=== PATIENT | female | born 1950 | race Caucasian/White ===

== ENCOUNTER → 2024-08-28 09:53 | Outpatient (CLI) | payer MEDICARE, SELFPAY ==
--- NOTE | 2024-08-28 09:55 | DI.CT.S_ITS ---
PROCEDURE: CT LUNG LOW DOSE SCREENING INDICATIONS: Current everyday smoker TECHNIQUE: Noncontrast 2.0-2.5 mm thick sections acquired from the pulmonary apices to the posterior costophrenic angles. 7 mm thick axial MIP, and 5 mm coronal and sagittal reformats were then acquired. For radiation dose reduction, the following was used: automated exposure control, adjustment of mA and/or kV according to patient size. COMPARISON: None. FINDINGS: Image quality: Diagnostic. Lower Neck: No enlarged lymph nodes. Thyroid: No thyroid nodules which require sonographic follow up, per consensus guidelines. Axillae: No enlarged lymph nodes. Chest Wall: Unremarkable. Bones: Unremarkable. Lungs and Pleura: No pneumothorax or pleural effusions. Moderate to severe upper lobe predominant emphysema No consolidation or suspicious nodules. Heart: Heart size is normal. No pericardial effusion. Thoracic Vessels: The aorta and pulmonary arteries demonstrate normal size. Mediastinum and Bety: No enlarged lymph nodes. Esophagus: No wall thickening. No hiatal hernia. Upper Abdomen: Visualized upper abdomen solid organs and bowel loops appear normal. IMPRESSION: No suspicious pulmonary nodules. LUNG-RADS 1; continued annual screening, if eligible. Clinically Significant Non-pulmonary Findings: None. Approved by: Mary Kay Ward M.D.,Ph.D. on 08/29/2024 at 1:32
== END ==
PROVIDERS: PCP Student in an Organized Health Care Education/Training Program; Referring Provider Student in an Organized Health Care Education/Training Program; Visit Provider Student in an Organized Health Care Education/Training Program
DX: F17.210 Nicotine dependence, cigarettes, uncomplicated (principal); Z12.2 Encounter for screening for malignant neoplasm of respiratory organs
CPT/HCPCS: 71271

== ENCOUNTER → 2024-09-15 14:06 | Outpatient (CLI) | payer MEDICARE, SELFPAY ==
[2024-09-15 14:36] LABS: Add Manual Diff / Slide Review NO; Basophils Absolute Auto 0 /uL (0-100); Basophils Percent Auto 0.6 % (0-2); Eosinophils Absolute Auto 100 /uL (0-450); Eosinophils Percent Auto 1.1 % (2-4); Hematocrit 39.6 % (36-46); Hemoglobin 13.2 g/dL (12.0-16.0); Lymphocytes Absolute Auto 2200 /uL (1100-4500); Lymphocytes Percent Auto 33.8 % (25-40); Mean Corpuscular HGB Conc 33.4 % (30-36); Mean Corpuscular Hemoglobin 32.4 PG (26-34); Monocytes Absolute Auto 700 /uL (0-900); Neutrophils Absolute Auto 3600 /uL (1500-7000); Neutrophils Percent Auto 54.5 % (50-75); Platelet Count 212 X10^3/uL (150-400); Red Blood Cell Count 4.08 X10^6/uL (4.0-5.2); White Blood Cell Count 6.6 X10^3/uL (4.5-11.0)
[2024-09-15 14:49] LABS: Hemoglobin A1C% w Est Avg Glu 5.2 % (4.0-6.0)
[2024-09-15 15:00] LABS: HEMOLYSIS < 15 (0-50); Iron 108 ug/dL (37-170)
[2024-09-15 15:06] LABS: Alanine Aminotransferase 17 IU/L (<35); Albumin 4.4 g/dL (3.5-5.0); Albumin Globulin Ratio 1.9 (1.0-2.8); Alkaline Phosphatase 35 U/L (38-126); Aspartate Aminotransferase 33 IU/L (14-36); BUN Creatinine Ratio 25.9 (6-22); Bilirubin Total 0.5 mg/dL (0.2-1.3); Blood Urea Nitrogen 21 mg/dL (7-17); Calcium 10.3 mg/dL (8.4-10.2); Carbon Dioxide 28 mmol/L (22-32); Chloride 104 mmol/L (98-107); Cholesterol 224 mg/dL (140-199); Estimated Glomerular Filt Rate > 60 mL/min (>60); Globulin 2.3 g/dL (1.7-4.1); Glucose 91 mg/dL (80-110); HDL Cholesterol 74 mg/dL (40-60); HEMOLYSIS 19 (0-50); LDL Cholesterol Calculated 131 mg/dL (<100); Potassium 4.9 mmol/L (3.4-5.1); Sodium 139 mmol/L (137-145); Total Protein 6.7 g/dL (6.3-8.2); Triglycerides 93 mg/dL (35-150)
[2024-09-15 15:11] LABS: Percent Iron Saturation 42 % (15-50); Total Iron Binding Capacity 259 ug/dL (265-497); Transferrin 217 mg/dL (206-381)
[2024-09-15 15:32] LABS: TSH w/ Reflex to FT4 1.94 uIU/mL (0.47-4.68)
[2024-09-15 15:35] LABS: Ferritin 327 ng/mL (11-264)
== END ==
PROVIDERS: PCP Student in an Organized Health Care Education/Training Program; Referring Provider Student in an Organized Health Care Education/Training Program; Visit Provider Student in an Organized Health Care Education/Training Program
DX: R63.4 Abnormal weight loss (principal); R53.83 Other fatigue; J43.9 Emphysema, unspecified; F17.200 Nicotine dependence, unspecified, uncomplicated
CPT/HCPCS: 36415; 80053; 80061; 82728; 83036; 83540; 83550; 84443; 85025

== ENCOUNTER 2025-01-25 13:24 | Outpatient (RCR) | payer MEDICARE, SELFPAY ==
--- NOTE | 2025-01-25 16:53 | PT.OTN ---
Current Diagnoses Pain in right thigh (01/25/25) Physical Therapy Treatment Note PT-OP-A Visit Information Start: 01/25/25 14:16 Freq: Status: Active Protocol: Document 01/25/25 13:45 DCW (Rec: 01/25/25 16:15 DCW [id number]) Out-Patient Physical Therapy Visit Information Visit Information Visit Type Initial Evaluation Visit Start Time 13:45 Visit Stop Time 14:15 Visit Number 1 Number of GENERAL FREIGHT AGENT Visits 0 Evaluation Information Evaluation Date 01/25/25 PT-OP-B Current Condition Start: 01/25/25 14:16 Freq: Status: Active Protocol: Document 01/25/25 13:45 DCW (Rec: 01/25/25 16:44 DCW [id number]) Current Condition History of Current Condition Onset Date Five month history Current Complaints Worsening right hip pain History of Current Condition Pt is a 74 year old female presenting with a five month history of right hip pain. Pt reports original pain was actually last summer, reports she was gardening and kneeling on concrete, and started experiencing right thigh pain. Pt was able to resolve pain with her history of pilates, worked out her leg. [place] good until this past winter, when she slipped on ice and her right leg went out. Has been experiencing worsening pain ever since. Pt is deaf, and can somewhat read lips, but occasionally will need to have conversation typed out if it is more complex. Pt experiences fairly severe pain in groin, worsening with lifting leg into bed or into her car. Repiorts she has trouble standing up straight, because it creates too much pain in her anterior hip. Was seen by PCP two months ago, admits pain has been a whole lot worse since she was seen. PT-OP-C Subjective Start: 01/25/25 14:16 Freq: Status: Active Protocol: Document 01/25/25 13:45 DCW (Rec: 01/25/25 16:44 DCW [id number]) Patient Questionnaires Lower Extremity Functional Scale LEFS Score 22/80 = 27.5% LEFS Impairment 60 to 79% Impaired (Score 17- 31) PT-OP-F Manual Assessment Start: 01/25/25 14:16 Freq: Status: Active Protocol: Document 01/25/25 13:45 DCW (Rec: 01/25/25 16:44 DCW [id number]) Manual Assessments Joint Mobility Assessment Joint Mobility Assessment Severe pain with attempted PROM of right hip. Wincing, writhing, and gasping with attempting to lie flat on table. PT-OP-L Special Tests Start: 01/25/25 14:16 Freq: Status: Active Protocol: Document 01/25/25 13:45 DCW (Rec: 01/25/25 16:44 DCW [id number]) Special Tests Other Special Tests Special Tests Unable to tolerate any movement of right hip due to severe pain PT-OP-M Strength Start: 01/25/25 14:16 Freq: Status: Active Protocol: Document 01/25/25 13:45 DCW (Rec: 01/25/25 16:44 DCW [id number]) Hip Strength Hip Manual Muscle Testing Right Flexion (L2) 4 Good Abduction 4 Good Adduction 4 Good Left Flexion (L2) 4 Good Abduction 4 Good Adduction 4 Good PT-OP-T Assessment and Plan Start: 01/25/25 14:16 Freq: Status: Active Protocol: Document 01/25/25 13:45 DCW (Rec: 01/25/25 16:53 DCW [id number]) Physical Therapy Assessment Rehab Potential Rehabilitation Potential Poor Evaluation Complexity Number of Personal Factors/Comorbidities 3 or More Number of Body Systems Impaired 4 or More Clinical Presentation at Evaluation Unstable Impairments Impairments Activity Tolerance,Functional Activities,Functional Mobility ,Pain,ROM,Soft Tissue Mobility ,Strength,Tone Assessment Summary Assessment Pt presents with a complete inability to assess at this time. While seated, pt noted some general pain in right groin, hip, and anterior thigh . Strength testing also resulted in some mild discomfort, however pt tolerated well. Upon attempting to get pt to lie back for further testing, she was in immediate and severe pain. Facial wincing, gasping in pain, writhing on table. Pt completely unable to tolerate any testing. With extreme response to severity of pain and pt noting that this response in both typical over the past few weeks and has been worsening since November, strongly recommend pt return to PCP for imaging. Pt may benefit from further skilled therapeutic intervention if pain is better controlled and further testing can be performed. Will need to reassess upon return Physical Therapy Plan Frequency and Duration Frequency of Treatment 1x/Week Plan of Care Start Date 01/25/25 Plan of Care End Date 02/25/25 Next Visit Focus/Plan Next Note Type Treatment Note Next Visit Plan Reassess pt's right hip and thigh upon return after follow -up with PCP and potential imaging.
--- NOTE | 2025-01-25 17:00 | PT.OIE ---
Current Diagnoses Pain in right thigh (01/25/25) Visit Care Team Role Provider Type Brenda Kimball MD Attending Provider Physician Family Provider Primary Care Provider Referring Provider Specialty: Family Practice Obstetrics Address: [address] [place] [address], [phone] Email: [email or web address] Physical Therapy Initial Evaluation PT-OP-A Visit Information Start: 01/25/25 14:16 Freq: Status: Active Protocol: Document 01/25/25 13:45 DCW (Rec: 01/25/25 16:15 DCW [id number]) Out-Patient Physical Therapy Visit Information Visit Information Visit Type Initial Evaluation Visit Start Time 13:45 Visit Stop Time 14:15 Visit Number 1 Number of OTM CONSULTANT Visits 0 Evaluation Information Evaluation Date 01/25/25 PT-OP-B Current Condition Start: 01/25/25 14:16 Freq: Status: Active Protocol: Document 01/25/25 13:45 DCW (Rec: 01/25/25 16:44 DCW [id number]) Current Condition History of Current Condition Onset Date Five month history Current Complaints Worsening right hip pain History of Current Condition Pt is a 74 year old female presenting with a five month history of right hip pain. Pt reports original pain was actually last summer, reports she was gardening and kneeling on concrete, and started experiencing right thigh pain. Pt was able to resolve pain with her history of pilates, worked out her leg. [place] good until this past winter, when she slipped on ice and her right leg went out. Has been experiencing worsening pain ever since. Pt is deaf, and can somewhat read lips, but occasionally will need to have conversation typed out if it is more complex. Pt experiences fairly severe pain in groin, worsening with lifting leg into bed or into her car. Reports she has trouble standing up straight, because it creates too much pain in her anterior hip. Was seen by PCP two months ago, admits pain has been a whole lot worse since she was seen. PT-OP-C Subjective Start: 01/25/25 14:16 Freq: Status: Active Protocol: Document 01/25/25 13:45 DCW (Rec: 01/25/25 16:44 DCW [id number]) Patient Questionnaires Lower Extremity Functional Scale LEFS Score 22/80 = 27.5% LEFS Impairment 60 to 79% Impaired (Score 17- 31) PT-OP-F Manual Assessment Start: 01/25/25 14:16 Freq: Status: Active Protocol: Document 01/25/25 13:45 DCW (Rec: 01/25/25 16:44 DCW [id number]) Manual Assessments Joint Mobility Assessment Joint Mobility Assessment Severe pain with attempted PROM of right hip. Wincing, writhing, and gasping with attempting to lie flat on table. PT-OP-L Special Tests Start: 01/25/25 14:16 Freq: Status: Active Protocol: Document 01/25/25 13:45 DCW (Rec: 01/25/25 16:44 DCW [id number]) Special Tests Other Special Tests Special Tests Unable to tolerate any movement of right hip due to severe pain PT-OP-M Strength Start: 01/25/25 14:16 Freq: Status: Active Protocol: Document 01/25/25 13:45 DCW (Rec: 01/25/25 16:44 DCW [id number]) Hip Strength Hip Manual Muscle Testing Right Flexion (L2) 4 Good Abduction 4 Good Adduction 4 Good Left Flexion (L2) 4 Good Abduction 4 Good Adduction 4 Good PT-OP-T Assessment and Plan Start: 01/25/25 14:16 Freq: Status: Active Protocol: Document 01/25/25 13:45 DCW (Rec: 01/25/25 16:53 DCW [id number]) Physical Therapy Assessment Rehab Potential Rehabilitation Potential Poor Evaluation Complexity Number of Personal Factors/Comorbidities 3 or More Number of Body Systems Impaired 4 or More Clinical Presentation at Evaluation Unstable Impairments Impairments Activity Tolerance,Functional Activities,Functional Mobility ,Pain,ROM,Soft Tissue Mobility ,Strength,Tone Assessment Summary Assessment Pt presents with a complete inability to assess at this time. While seated, pt noted some general pain in right groin, hip, and anterior thigh . Strength testing also resulted in some mild discomfort, however pt tolerated well. Upon attempting to get pt to lie back for further testing, she was in immediate and severe pain. Facial wincing, gasping in pain, writhing on table. Pt completely unable to tolerate any testing. With extreme response to severity of pain and pt noting that this response in both typical over the past few weeks and has been worsening since November, strongly recommend pt return to PCP for imaging. Pt may benefit from further skilled therapeutic intervention if pain is better controlled and further testing can be performed. Will need to reassess upon return Physical Therapy Plan Frequency and Duration Frequency of Treatment 1x/Week Plan of Care Start Date 01/25/25 Plan of Care End Date 02/25/25 Next Visit Focus/Plan Next Note Type Treatment Note Next Visit Plan Reassess pt's right hip and thigh upon return after follow -up with PCP and potential imaging.
--- NOTE | 2025-08-23 10:12 | PT.OPDS ---
Current Diagnoses Pain in right thigh (01/25/25) Visit Care Team Role Provider Type Brenda Kimball MD Attending Provider Physician Family Provider Primary Care Provider Referring Provider Specialty: Family Practice Obstetrics Address: [address] [place] [address], [phone] Email: [email or web address] Visit Number Visit Number 1 Discharge Summary PT-OP-A Visit Information Start: 01/25/25 14:16 Freq: Status: Active Protocol: Document 01/25/25 13:45 DCW (Rec: 01/25/25 16:15 DCW [id number]) Out-Patient Physical Therapy Visit Information Visit Information Visit Type Initial Evaluation Visit Start Time 13:45 Visit Stop Time 14:15 Visit Number 1 Number of WARDROBE SPECIALIST Visits 0 Evaluation Information Evaluation Date 01/25/25 PT-OP-B Current Condition Start: 01/25/25 14:16 Freq: Status: Active Protocol: Document 01/25/25 13:45 DCW (Rec: 01/25/25 16:44 DCW [id number]) Current Condition History of Current Condition Onset Date Five month history Current Complaints Worsening right hip pain History of Current Pt is a 74 year old female presenting with a five month Condition history of right hip pain. Pt reports original pain was actually last summer, reports she was gardening and kneeling on concrete, and started experiencing right thigh pain. Pt was able to resolve pain with her history of pilates, worked out her leg. [place] good until this past winter, when she slipped on ice and her right leg went out. Has been experiencing worsening pain ever since. Pt is deaf, and can somewhat read lips , but occasionally will need to have conversation typed out if it is more complex. Pt experiences fairly severe pain in groin, worsening with lifting leg into bed or into her car. Repiorts she has trouble standing up straight, because it creates too much pain in her anterior hip. Was seen by PCP two months ago, admits pain has been a whole lot worse since she was seen. PT-OP-C Subjective Start: 01/25/25 14:16 Freq: Status: Active Protocol: Document 01/25/25 13:45 DCW (Rec: 01/25/25 16:44 DCW [id number]) Patient Questionnaires Lower Extremity Functional Scale LEFS Score 22/80 = 27.5% LEFS Impairment 60 to 79% Impaired (Score 17-31) PT-OP-F Manual Assessment Start: 01/25/25 14:16 Freq: Status: Active Protocol: Document 01/25/25 13:45 DCW (Rec: 01/25/25 16:44 DCW [id number]) Manual Assessments Joint Mobility Assessment Joint Mobility Severe pain with attempted PROM of right hip. Wincing, Assessment writhing, and gasping with attempting to lie flat on table. PT-OP-L Special Tests Start: 01/25/25 14:16 Freq: Status: Active Protocol: Document 01/25/25 13:45 DCW (Rec: 01/25/25 16:44 DCW [id number]) Special Tests Other Special Tests Special Tests Unable to tolerate any movement of right hip due to severe pain PT-OP-M Strength Start: 01/25/25 14:16 Freq: Status: Active Protocol: Document 01/25/25 13:45 DCW (Rec: 01/25/25 16:44 DCW [id number]) Hip Strength Hip Manual Muscle Testing Right Flexion (L2) 4 Good Abduction 4 Good Adduction 4 Good Left Flexion (L2) 4 Good Abduction 4 Good Adduction 4 Good PT-OP-T Assessment and Plan Start: 01/25/25 14:16 Freq: Status: Active Protocol: Document 08/23/25 10:11 DCW (Rec: 08/23/25 10:11 DCW [id number]) Physical Therapy Assessment Assessment Summary Assessment Pt has not been seen in six months, will be discharged from skilled therapy at this time. Pt will need a new referral to return to PT in the future. Physical Therapy Plan Discharge Physical Therapy Discharge Reasons No Longer Attending PT Next Visit Focus/Plan Next Note Type Discharge Summary
== END 2025-08-24 10:51 | disposition home or self-care (01) ==
LOC: PHYS 13:24
PROVIDERS: Family Provider Student in an Organized Health Care Education/Training Program; PCP Student in an Organized Health Care Education/Training Program; Referring Provider Student in an Organized Health Care Education/Training Program; Visit Provider Student in an Organized Health Care Education/Training Program
DX: M79.651 Pain in right thigh (principal)
CPT/HCPCS: 97163

== ENCOUNTER → 2025-01-28 11:42 | Outpatient (CLI) | payer MEDICARE, SELFPAY ==
--- NOTE | 2025-01-28 11:44 | DI.RAD.S_ITS ---
PROCEDURE: XR HIP W PEL IF DONE RT 2V INDICATIONS: Chronic hip pain TECHNIQUE: AP pelvis with lateral view of the right hip. COMPARISON: None. FINDINGS: Bones: No acute fractures or dislocations. Pelvic ring appears intact. No suspicious bony lesions. Mild degenerative changes in the hips bilaterally with mild joint space narrowing and marginal osteophyte formation. Multilevel degenerative changes in the included spine. Bones are osteopenic. Soft tissues: The visualized bowel gas pattern is normal. No suspicious soft tissue calcifications. IMPRESSION: Mild bilateral hip osteoarthrosis. Approved by: Garo Garrido M.D. on 01/28/2025 at 14:06
== END ==
PROVIDERS: Family Provider Student in an Organized Health Care Education/Training Program; PCP Student in an Organized Health Care Education/Training Program; Referring Provider Student in an Organized Health Care Education/Training Program; Visit Provider Student in an Organized Health Care Education/Training Program
DX: M16.0 Bilateral primary osteoarthritis of hip (principal); M25.559 Pain in unspecified hip; G89.29 Other chronic pain
CPT/HCPCS: 73502